=== PATIENT | male | born 1960 | race Caucasian/White ===

== ENCOUNTER 2016-09-24 12:15 | Emergency (ER) | payer OTHER, BC ==
[2016-09-24] MEDS ORDERED: Diphtheria,Pertussis(Acell),Tetanus Vaccine 0.5 ML Syringe IM ONE (12:24)
[2016-09-24] MEDS ORDERED: Sodium Chloride 0.9% 2.5 ML Syringe FLUSH PRN (12:24)
[2016-09-24] MEDS ORDERED: Sodium Chloride 0.9% 10 ML Syringe FLUSH PRN (12:24)
[2016-09-24] MEDS ORDERED: Ondansetron 4 MG/2 ML SDV IVPUSH ONE ×2 (12:39→13:03)
--- NOTE | 2016-09-24 12:40 | EDM.PDOC ---
ED HPI HEAD INJURY - General Chief Complaint: Syncope Stated Complaint: HEAD INJURY Time Seen by Provider: 09/24/16 12:16 Source of Information: Reports: Patient History Limitations: Reports: No limitations - History of Present Illness INITIAL COMMENTS - FREE TEXT/NARRATIVE: History of present illness: [] Patient was using a snowblower and slipped and hit his head on concrete. He had a loss of consciousness and apparently the [employer] product delivery specialist helped him up. He arrived by private vehicle with his complaining of a headache and nauseous. He has had some episodes of emesis since this happened at approximately 11:30 this morning. He has some mild neck pain denies any visual changes, numbness or tingling or any other injuries. Review of systems: As per history of present illness and below otherwise all systems reviewed and negative. Past medical history: As per history of present illness and as reviewed below otherwise noncontributory. Surgical history: As per history of present illness and as reviewed below otherwise noncontributory. Social history: No reported history of drug or alcohol abuse. Family history: As per history of present illness and as reviewed below otherwise noncontributory. Physical exam: General: Well developed, well nourished in NAD HEENT: Atraumatic, normocephalic, pupils reactive, negative for conjunctival pallor or scleral icterus, mucous membranes moist, throat clear, neck supple, nontender, trachea midline. Lungs: Clear to auscultation, breath sounds equal bilaterally, chest nontender. Heart: S1S2, regular, negative for clicks, rubs, or JVD. Abdomen: Soft, nondistended, nontender. Negative for masses or hepatosplenomegaly. Negative for costovertebral tenderness. Pelvis: Stable nontender. Genitourinary: Deferred. Rectal: Deferred. Extremities: Atraumatic, negative for cords or calf pain. Neurovascular unremarkable. Neuro: Awake, alert, oriented. Cranial nerves II through XII unremarkable. Cerebellum unremarkable. Motor and sensory unremarkable throughout. Exam nonfocal. Diagnostics: [] CT head and neck negative fracture or bleed, labs normal EKG normal sinus rhythm without acute ischemia Therapeutics: [] Patient refused any pain meds other than Tylenol he was also given Zofran for nausea Impression: [] Blunt head trauma concussion Plan: [] Followup PMD return to ER if any symptoms worsen Zofran for nausea and Tylenol for pain Definitive disposition and diagnosis as appropriate pending reevaluation and review of above. - Related Data Allergies/ADRs: Allergies Allergy/AdvReac Type Severity Reaction Status Date / Time meperidine HCl [From Demerol] Allergy Delusions Verified 09/24/16 12:24 Home Meds: Home Meds Aspirin [Halfprin] 81 mg PO DAILY 12/21/13 [History] Fish Oil/[place]-3 Fatty Acids [Fish Oil 1,000 MG] 1 each PO DAILY 12/21/13 [ History] Hydrocodone/Acetaminophen [Hydrocodon-Acetaminoph 2.5-325] 0 tab ORAL.INH ASDIRECTED PRN 12/21/13 [History] Meloxicam [Mobic] 1 mg PO DAILY 12/21/13 [History] Social & Family History - Alcohol Use Days Per Week of Alcohol Use: 7 Number of Drinks Per Day: 1 Total Drinks Per Week: 7 - Recreational Drug Use Recreational Drug Use: No Drug Use in Last 12 Months: No ED ROS GENERAL - Review of Systems Review Of Systems: See Below (See history of present illness) ED EXAM, HEAD INJURY - Physical Exam Exam: See Below (See history of present illness) Course - Vital Signs Last Recorded V/S: Last Vital Signs Temp 36.5 C 09/24/16 12:27 Pulse 89 09/24/16 12:27 Resp 18 09/24/16 12:27 BP 186/94 H 09/24/16 12:27 Pulse Ox 96 09/24/16 12:27 - Orders/Labs/Meds Orders: Active Orders 24 hr Category Date Time Status EKG Documentation Completion [RC] STAT Care 09/24/16 12:28 Active Vaccines to be Administered [RC] PER UNIT ROUTINE Care 09/24/16 12:24 Active Acetaminophen [Tylenol] Med 09/24/16 13:23 Once 650 mg PO NOW ONE Sodium Chloride 0.9% [Saline Flush] Med 09/24/16 12:24 Active 10 ml FLUSH ASDIRECTED PRN Sodium Chloride 0.9% [Saline Flush] Med 09/24/16 12:24 Active 2.5 ml FLUSH ASDIRECTED PRN Peripheral IV Insertion Adult [OM.PC] Stat Oth 09/24/16 12:24 Ordered Medication Orders Sodium Chloride (Saline Flush) 10 ml FLUSH ASDIRECTED PRN PRN Reason: Keep Vein Open Sodium Chloride (Saline Flush) 2.5 ml FLUSH ASDIRECTED PRN PRN Reason: Keep Vein Open Labs: Laboratory Tests 09/24/16 09/24/16 09/24/16 Range/Units 12:35 12:35 12:35 WBC 4.11 (4.0-11.0) K/uL RBC 4.83 (4.50-5.90) M/uL Hgb 15.0 (13.0-17.0) g/dL Hct 43.5 (38.0-50.0) % MCV 90.1 (80.0-98.0) fL MCH 31.1 (27.0-32.0) pg MCHC 34.5 (31.0-37.0) g/dL RDW Std Deviation 46.6 (28.0-62.0) fl RDW Coeff of Chante 14 (11.0-15.0) % Plt Count 111 L (150-400) K/uL MPV 10.10 (7.40-12.00) fL Neut % (Auto) 68.3 (48.0-80.0) % Lymph % (Auto) 20.7 (16.0-40.0) % [place] % (Auto) 7.1 (0.0-15.0) % Eos % (Auto) 3.4 (0.0-7.0) % Baso % (Auto) 0.5 (0.0-1.5) % Neut # 2.8 (1.4-5.7) K/uL Lymph # 0.9 (0.6-2.4) K/uL [place] # 0.3 (0.0-0.8) K/uL Eos # 0.1 (0.0-0.7) K/uL Baso # 0.0 (0.0-0.1) K/uL Nucleated RBC % 0.0 /100WBC Nucleated RBCs # 0 K/uL Sodium 140 (136-146) mmol/L Potassium 3.9 (3.5-5.1) mmol/L Chloride 105 (98-110) mmol/L Carbon Dioxide 23 (21-31) mmol/L BUN 18 (6.0-23.0) mg/dL Creatinine 0.8 (0.6-1.5) mg/dL Est Cr Clr Drug Dosing 117.21 mL/min Estimated GFR (MDRD) > 60.0 ml/min Glucose 148 H (60-110) mg/dL Calcium 9.2 (8.8-10.8) mg/dL Total Bilirubin 2.1 H (0.1-1.5) mg/dL AST 37 (5-40) IU/L ALT 42 (8-54) IU/L Alkaline Phosphatase 55 (40-150) Troponin I < 0.10 (0.0-0.29) NG/ML Total Protein 7.0 (6.0-8.0) g/dL Albumin 4.3 (3.5-5.0) g/dL Globulin 2.7 (2.0-3.5) g/dL Albumin/Globulin Ratio 1.6 (1.3-2.8) Meds: Medications Generic Name Dose Route Start Last Admin Trade Name Freq PRN Reason Stop Dose Admin Sodium Chloride 10 ml 09/24/16 12:24 Saline Flush FLUSH ASDIRECTED PRN Keep Vein Open Sodium Chloride 2.5 ml 09/24/16 12:24 Saline Flush FLUSH ASDIRECTED PRN Keep Vein Open Discontinued Medications Generic Name Dose Route Start Last Admin Trade Name Freq PRN Reason Stop Dose Admin Morphine Sulfate 2 mg 09/24/16 13:01 Morphine IVPUSH 09/27/16 13:02 ONETIME PRN Pain Ondansetron HCl 4 mg 09/24/16 12:39 09/24/16 12:56 Zofran IVPUSH 09/24/16 12:40 4 mg ONETIME ONE Administration Ondansetron HCl 4 mg 09/24/16 13:03 Zofran IVPUSH 09/24/16 13:04 ONETIME ONE Departure - Departure Time of Disposition: 13:27 Disposition: Home, Self-Care 01 Condition: good Clinical Impression: Blunt head trauma Qualifiers: Encounter type: initial encounter Qualified Code(s): S09.8XXA - Other specified injuries of head, initial encounter Concussion Qualifiers: Encounter type: initial encounter Loss of consciousness presence/duration: with LOC of unspecified duration Qualified Code(s): S06.0X9A - Concussion with loss of consciousness of unspecified duration, initial encounter Forms: ED Department Discharge Additional Instructions: The following information is given to patients seen in the emergency department who are being discharged to home. This information is to outline your options for follow-up care. We provide all patients seen in our emergency department with a follow-up referral. The need for follow-up, as well as the timing and circumstances, are variable depending upon the specifics of your emergency department visit. If you don't have a primary care physician on staff, we will provide you with a referral. We always advise you to contact your personal physician following an emergency department visit to inform them of the circumstance of the visit and for follow-up with them and/or the need for any referrals to a consulting specialist. The emergency department will also refer you to a specialist when appropriate. This referral assures that you have the opportunity for follow-up care with a specialist. All of these measure are taken in an effort to provide you with optimal care, which includes your follow-up. Under all circumstances we always encourage you to contact your private physician who remains a resource for coordinating your care. When calling for follow-up care, please make the office aware that this follow-up is from your recent emergency room visit. If for any reason you are refused follow-up, please contact the [facility] Emergency Department at and asked to speak to the emergency department charge nurse. Shainafran for nausea Tylenol for pain [facility] [address] [place] [id number] - My Orders Last 24 Hours: My Active Orders 09/24/16 12:24 Vaccines to be Administered [RC] PER UNIT ROUTINE Sodium Chloride 0.9% [Saline Flush] 10 ml FLUSH ASDIRECTED PRN Sodium Chloride 0.9% [Saline Flush] 2.5 ml FLUSH ASDIRECTED PRN Peripheral IV Insertion Adult [OM.PC] Stat 09/24/16 12:28 EKG Documentation Completion [RC] STAT 09/24/16 13:23 Acetaminophen [Tylenol] 650 mg PO NOW ONE - Assessment/Plan Last 24 Hours: My Active Orders 09/24/16 12:24 Vaccines to be Administered [RC] PER UNIT ROUTINE Sodium Chloride 0.9% [Saline Flush] 10 ml FLUSH ASDIRECTED PRN Sodium Chloride 0.9% [Saline Flush] 2.5 ml FLUSH ASDIRECTED PRN Peripheral IV Insertion Adult [OM.PC] Stat 09/24/16 12:28 EKG Documentation Completion [RC] STAT 09/24/16 13:23 Acetaminophen [Tylenol] 650 mg PO NOW ONE
[2016-09-24] MEDS ORDERED: Morphine 2 MG/ML Syringe IVPUSH PRN (13:01)
[2016-09-24 13:07] LABS: CHLORIDE,CL 105 mmol/L (98-110); SODIUM,NA 140 mmol/L (136-146)
--- NOTE | 2016-09-24 13:15 | CT ---
EXAMINATION: Non contrast CT head. Coronal and sagittal reformats. HISTORY: Pain FINDINGS: No evidence of intra or extra axial hemorrhage, mass, midline shift, hydrocephalus or edema. No hypoattenuation changes in the major vascular territories to suggest acute infarct. No abnormal intracranial calcifications are detected. No evidence of substantial vascular calcifica tions. Paranasal sinuses and mastoid air cells are well aerated without substantial findings. The orbits a nd globes appear intact. Pituitary fossa appears unremarkable. Calvarium is intact. No evidence of skull fracture. IMPRESSION: No acute intracranial findings.
--- NOTE | 2016-09-24 13:19 | CT ---
EXAMINATION: CT cervical spine HISTORY: Pain COMPARISON: None TECHNIQUE: Axial CT images obtained through the cervical spine without contrast. Coronal and sagitta l reconstructions obtained. FINDINGS: The cervical spinal alignment appears normal. The vertebral body heights and disc spaces a ppear well-maintained. There is no fracture or dislocation. Mild marginal osteophytes are noted. Bon e mineralization appears normal. The paravertebral soft tissues appear normal. The right thyroid lob e is heterogeneous containing coarse calcifications. IMPRESSION: 1. No acute cervical spinal abnormality. 2. Mild degenerative changes noted within the cervical spine. 3. Enlarged heterogeneous thyroid lobe, correlation with ultrasound may be beneficial.
[2016-09-24] MEDS ORDERED: Acetaminophen 325 MG Tab PO ONE (13:23)
[2016-09-24 13:25] VITALS: BP 155/106
== END 2016-09-24 13:40 | disposition home or self-care (01) ==
LOC: MW.ED 12:15
DX: S06.0X9A Concussion with loss of consciousness of unspecified duration, initial encounter (principal); S09.8XXA Other specified injuries of head, initial encounter; Z88.6 Allergy status to analgesic agent; Z79.899 Other long term (current) drug therapy; Z79.82 Long term (current) use of aspirin; V00.321A Fall from snow-skis, initial encounter
CPT/HCPCS: 70450; 72125; 80053; 84484; 85025; 93005; 96374; 99284; A9270; J2405

== ENCOUNTER 2018-10-30 07:40 | Day surgery (SDC) | payer OTHER, BC ==
[~2018-10-30 07:40] MED LIST: Lactated Ringers 1,000 ML IV SCH
--- NOTE | 2018-10-30 09:31 | PCM.PREANE ---
Preanesthetic Assessment - Anesthesia/Transfusion/Family Hx Anesthesia History: Prior Anesthesia Reaction Other Type of Anesthesia Reaction Comment: Reports has motion sickness, and prior severe nausea post General Anesthesi Family History of Anesthesia Reaction: No Transfusion History: No Prior Transfusion(s) - Review of Systems General: No Symptoms Pulmonary: No Symptoms Cardiovascular: No Symptoms Gastrointestinal: No Symptoms Neurological: No Symptoms Other: Reports: None - Physical Assessment NPO Status Date: 10/29/18 NPO Status Time: 22:00 O2 Sat by Pulse Oximetry: 100 Respiratory Rate: 18 Vital Signs: Last Vital Signs Temp 97.0 F 10/30/18 07:55 Pulse 89 10/30/18 07:55 Resp 18 10/30/18 07:55 BP 143/69 H 10/30/18 07:55 Pulse Ox 100 10/30/18 07:55 Height: 6 ft Weight: 99.79 kg ASA Class: 2 Mental Status: Alert & Oriented x3 Airway Class: Mallampati = 2 Dentition: Reports: Normal Dentition ROM/Head Extension: Full Lungs: Clear to Auscultation, Normal Respiratory Effort Cardiovascular: Regular Rate, Regular Rhythm - Allergies Allergies/Adverse Reactions: Allergies Allergy/AdvReac Type Severity Reaction Status Date / Time meperidine HCl [From Demerol] Allergy Delusions Verified 10/28/18 10:31 morphine Allergy Nausea and Verified 10/28/18 10:31 Vomiting - Blood Blood Available: No - Anesthesia Plan Pre-Op Medication Ordered: None - Acknowledgements Anesthesia Type Planned: General Anesthesia, MAC Pt an Appropriate Candidate for the Planned Anesthesia: Yes Alternatives and Risks of Anesthesia Discussed w Pt/Guardian: Yes Pt/Guardian Understands and Agrees with Anesthesia Plan: Yes Additional Comments: PMH: dm2, no longer has annika or htn PLAN: mac/tiva PreAnesthesia Questionnaire HEENT History: Reports: Other (See Below) Other HEENT History: uses reading glasses Cardiovascular History: Reports: Hypertension, Other (See Below) Other Cardiovascular History: previously hypertensive- has been off meds- controlled by diet and exercise, has varicose veins in legs Respiratory History: Reports: Sleep Apnea Other Respiratory History: does not need CPAP since weight loss Gastrointestinal History: Reports: Colon Polyp, Hemorrhoids Genitourinary History: Reports: None Musculoskeletal History: Reports: Arthritis, Fracture Other Musculoskeletal History: hx of fx radius and tibia Neurological History: Reports: Concussion, Other (See Below) Other Neuro History: hx of motion sickness Endocrine/Metabolic History: Reports: Diabetes, Type II Hematologic History: Reports: Anemia Dermatologic History: Reports: Eczema - Infectious Disease History Infectious Disease History: Reports: Chicken Pox - Past Surgical History Head Surgeries/Procedures: Reports: None GI Surgical History: Reports: Colonoscopy, Hernia, Inguinal Male Surgical History: Reports: Vasectomy Other Male Surgeries/Procedures: herniorhaphy Musculoskeletal Surgical History: Reports: Knee Replacement Other Musculoskeletal Surgeries/Procedures:: right TKA - SUBSTANCE USE Smoking Status *Q: Former Smoker Tobacco Use Within Last Twelve Months: No Days Per Week of Alcohol Use: 7 Number of Drinks Per Day: 2 Total Drinks Per Week: 14 Recreational Drug Use History: No - HOME MEDS Home Medications: Home Meds Fish Oil/[place]-3 Fatty Acids [Fish Oil 1,000 MG] 1 gm PO DAILY 12/21/13 [History ] Glucosam/Chond/Hyalu/Cf Borate [Move Free Joint Health Tablet] 2 tab PO DAILY [History] Hydrocodone/Acetaminophen [Hydrocodon-Acetaminophn 10-325] 1 tab PO Q6H PRN 05/08 [History] Triamcinolone Acetonide [Triamcinolone Acetonide 0.1% Crm] 1 dose TOP ASDIRECTED PRN 10/28/18 [History] metFORMIN HCl [Glucophage] 850 mg PO BIDMEALS 10/28/18 [History] - CURRENT (IN HOUSE) MEDS Current Meds: Current Medications Lactated Ringer's (Ringers, Lactated) 1,000 mls @ 125 mls/hr IV ASDIRECTED ROBERT Last Admin: 10/30/18 08:10 Dose: 125 mls/hr
[2018-10-30] MEDS ORDERED: Propofol 200 MG/20 ML SDV ONE ×2 (09:49→10:22)
[2018-10-30] MEDS ORDERED: Ondansetron 4 MG/2 ML SDV ONE (09:49)
--- NOTE | 2018-10-30 10:39 | PCM.POSTAN ---
POST ANESTHESIA ASSESSMENT - PAIN Pain Score: 0
--- NOTE | 2018-10-30 10:45 | PCM.OPNOTE ---
- General Post-Op/Procedure Note Date of Surgery/Procedure: 10/30/18 Operative Procedure(s): egd w bx. colonoscopy w bx Condition: Good
--- NOTE | 2018-10-30 10:51 | PCM.OPNOTE ---
- General Post-Op/Procedure Note Date of Surgery/Procedure: 10/30/18 Operative Procedure(s): egd w bx. colonoscopy w bx Findings: see dict [id number] Pre Op Diagnosis: wt loss and hx of polyp Post-Op Diagnosis: Same Anesthesia Technique: Moderate Sedation Primary Surgeon: Macario Akbar Pathology: egd bx and sessile polyp at 85 cm when scope pulling out Complications: None Condition: Good Free Text/Narrative:: Intake & Output 10/29/18 10/30/18 10/30/18 22:59 06:59 14:59 Intake Total 1100 Balance 1100
--- NOTE | 2018-10-30 10:57 | PCM48HPAN ---
Post Anesthesia Note - EVALUATION WITHIN 48HRS OF ANESTHETIC Vital Signs in Normal Range: Yes Patient Participated in Evaluation: Yes Respiratory Function Stable: Yes Airway Patent: Yes Cardiovascular Function Stable: Yes Hydration Status Stable: Yes Pain Control Satisfactory: Yes Nausea and Vomiting Control Satisfactory: Yes Mental Status Recovered: Yes Resp Rate: 7
[2018-10-30 10:58] VITALS: BP 118/74
[2018-10-30] MEDS ORDERED: Arista AH Absorbable Hemostat ONE (11:49)
--- NOTE | 2018-10-30 16:51 | OR ---
SURGEON: Macario Akbar MD DATE OF PROCEDURE: 10/30/2018 PREOPERATIVE DIAGNOSES: 1. History of colon polyp. 2. Weight loss. POSTOPERATIVE DIAGNOSES: 1. Esophagogastroduodenoscopy diagnosis is gastroesophageal reflux disease. 2. Colonoscopy diagnosis is polyp and diverticulosis. PROCEDURE PERFORMED: 1. Esophagogastroduodenoscopy with biopsy. 2. Colonoscopy with biopsy. DESCRIPTION OF PROCEDURE: EGD: The patient was taken to the endoscopy room, and with the CLINICAL PHARMACY COORDINATOR, Diprivan was administered. A well-lubricated EGD scope was gently inserted through the oropharynx, down the esophagus, passing through the gastroesophageal junction, into the stomach. The mucosa was examined upon the passage. Any etiology will be noted. Once in the stomach, we continued to advance to the distal antrum, passed through the pylorus into the second portion of the duodenum. Again, the mucosa was examined for any abnormality and etiology. The scope was then retrieved back to the stomach and then retroflexed to look at the fundus of the stomach. If a biopsy was indicated, we will biopsy the antrum, body, and gastroesophageal junction. The air will be sucked out while the scope is retrieved to reduce the patient's discomfort. The patient tolerated the procedure well. There were no intraoperative complications. Dr. Akbar was present through the whole procedure. Prior to surgery, a time-out had been called, the patient identified, procedure identified and antibiotic administered. Colonoscopy: The patient was taken to the endoscopy room. A time out was called, patient identified, and procedure identified. Diprivan was then administrated. Patient went from awake to sleep, hearing doctor talking or door closing is normal. Perineum inspection and digital examination were then performed. A well-lubricated colonoscope was gently inserted through the rectum, advanced past the rectosigmoid junction, the descending colon, splenic flexure, transverse colon, hepatic flexure, ascending colon, arrived to the cecum. Cecum was identified as dictated in the finding. Then the scope was carefully withdrawn while attention was paid to the mucosal surface for any abnormality. Air will be sucked out during the scope withdrawal. At the rectum, retroflexed to examine any rectal diseases, fistula or hemorrhoids. During mucosal examination, biopsy performed. Patient tolerated procedure well. There were no intraoperative complications, and Dr. Akbar was present throughout the whole procedure. FINDINGS: EGD findings: 1. The patient is easily sedated with CLINICAL PHARMACY COORDINATOR and Diprivan. The patient is soundly snoring. 2. Oropharynx and proximal esophagus are free of disease. No stricture of varicosity and distal esophagus at GE junction at 40 shows moderate amount of salmon-colored change suggests of acid reflux. Stomach rugae is normal in appearance. Antrum is normal in appearance and duodenum was grossly normal. There is no food particle or blood or bile observed and scope retrieved back to the stomach. Retroflexed look at the fundus of stomach, there was no hiatal hernia. Biopsy done at antrum, body, and GE junction at 40, and sucked out the gas while scope pulling out. Colonoscopy findings: 1. The patient is easily sedated with CLINICAL PHARMACY COORDINATOR and Diprivan. The patient is soundly snoring. 2. Bowel prep is average with some liquid stool. No semi-formed stool. 3. Colon is rather straightforward. Cecum indicated by ileocecal fold, one-to- one indentation, and light emittance. Appendiceal orifice is not observed. Mucosa examined upon scope pulling out. The patient has mild diverticulosis on the left colon. No signs or symptoms of diverticulitis. The patient has 1 small polyp at distance 85 cm when scope pulling out and sessile polyp removed with cold biopsy forceps. The patient has external hemorrhoid and internal hemorrhoid. The patient would benefit from repeat colonoscopy in 3 years from today because of history of polyp if clinically indicated otherwise. FREDDIE / RANDI /[id number] ISSA
== END 2018-10-30 11:14 | disposition home or self-care (01) ==
LOC: MW.SDS 07:40
PROVIDERS: ATTEND Surgery
DX: Z12.11 Encounter for screening for malignant neoplasm of colon (principal); D12.3 Benign neoplasm of transverse colon; K57.30 Diverticulosis of large intestine without perforation or abscess without bleeding; K64.8 Other hemorrhoids; K64.4 Residual hemorrhoidal skin tags; K29.50 Unspecified chronic gastritis without bleeding; K21.0 Gastro-esophageal reflux disease with esophagitis; I83.90 Asymptomatic varicose veins of unspecified lower extremity; I10 Essential (primary) hypertension; E11.9 Type 2 diabetes mellitus without complications; G47.30 Sleep apnea, unspecified; R63.4 Abnormal weight loss; Z68.29 Body mass index [BMI] 29.0-29.9, adult; Z88.5 Allergy status to narcotic agent; Z87.891 Personal history of nicotine dependence; Z86.010 Personal history of colon polyps; Z79.82 Long term (current) use of aspirin; Z79.84 Long term (current) use of oral hypoglycemic drugs; Z79.899 Other long term (current) drug therapy
CPT/HCPCS: 43239; 45380; 82962; J2001; J2405; J2704; J7120; 88305; 88312

== ENCOUNTER 2020-03-07 08:26 | Emergency (ER) | payer BC, OTHER ==
[2020-03-07] MEDS ORDERED: fentaNYL 50 MCG/ML SDV IVPUSH ONE ×2 (08:40→09:42)
[2020-03-07] MEDS ORDERED: Sodium Chloride 0.9% 10 ML Syringe FLUSH PRN (08:40)
[2020-03-07] MEDS ORDERED: Acetaminophen 500 MG Tab PO ONE (08:40)
[2020-03-07] MEDS ORDERED: Sodium Chloride 0.9% 2.5 ML Syringe FLUSH PRN (08:40)
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
[2020-03-07] MEDS ORDERED: Diphtheria,Pertussis(Acell),Tetanus Vaccine 0.5 ML Syringe IM ONE (08:43)
[2020-03-07 09:27] LABS: BLOOD UREA NITROGEN,BUN 18 mg/dL (7.0-18.0); CARBON DIOXIDE,CO2 21.9 mmol/L (21.0-32.0); CHLORIDE,CL 103 mmol/L (98-107); GLUCOSE RANDOM 202 mg/dL (74-106); POTASSIUM,K 4.1 mmol/L (3.5-5.1); SODIUM,NA 136 mmol/L (136-148)
[2020-03-07] MEDS ORDERED: Ondansetron 4 MG/2 ML SDV IVPUSH ONE ×2 (09:52→11:58)
--- NOTE | 2020-03-07 09:52 | CR ---
Right femur: AP and lateral views of the right femur were obtained. Comminuted and displaced fracture is noted within the distal femur directly above a knee prosthesis. Displacement by almost a shaft width is seen. No proximal abnormality is seen within the right femur. Soft tissue swelling is present. Impression: 1. Comminuted and displaced fracture as described above. 2. Right knee prosthesis. Diagnostic code #5 This report was dictated in MDT
--- NOTE | 2020-03-07 09:53 | CR ---
Right knee: AP and lateral views of the right knee were obtained. Comparison: No prior knee study. Fracture is seen within the distal right femur above a knee prosthesis. Comminution is noted as well as displacement by almost a shaft width. Prosthesis appears normal in alignment. Osteopenia is noted. No additional abnormality is appreciated. Impression: 1. Knee prosthesis. 2. Comminuted and displaced femur fracture as noted above. Diagnostic code #5 This report was dictated in MDT
--- NOTE | 2020-03-07 09:54 | CR ---
Pelvis: AP view of the pelvis was obtained. Comparison: No prior pelvis study. Joint space within the left hip is minimally narrowed. Joint space within the right hip is preserved. Sacroiliac joints appear within normal limits. No acute fracture or other abnormality is appreciated. Impression: 1. Minimal joint space narrowing with left hip. 2. AP pelvis study shows nothing acute. Diagnostic code #2 This report was dictated in MDT
--- NOTE | 2020-03-07 10:19 | CR ---
Chest: Portable view of the chest was obtained. Comparison: No previous chest imaging. Heart size and mediastinum are normal. Lungs are clear with no acute parenchymal change. Bony structures are grossly intact. Impression: 1. Nothing acute is seen on portable chest x-ray. Diagnostic code #1 This report was dictated in MDT
[2020-03-07] MEDS ORDERED: HYDROmorphone 2 MG/ML Syringe IVPUSH ONE (10:40)
[2020-03-07 10:59] VITALS: PULSE 120
[2020-03-07] MEDS ORDERED: Lactated Ringers 1,000 ML IV ONE (11:04)
[2020-03-07] MEDS ORDERED: HYDROmorphone 1 MG/ML Syringe IVPUSH ONE (11:57)
[2020-03-07 12:05] VITALS: BP 121/76
== END 2020-03-07 12:15 ==
LOC: MW.ED 08:26
DX: S72.401A Unspecified fracture of lower end of right femur, initial encounter for closed fracture (principal); S60.512A Abrasion of left hand, initial encounter; S60.511A Abrasion of right hand, initial encounter; S40.211A Abrasion of right shoulder, initial encounter; S00.81XA Abrasion of other part of head, initial encounter; I10 Essential (primary) hypertension; E11.9 Type 2 diabetes mellitus without complications; Z79.84 Long term (current) use of oral hypoglycemic drugs; Z88.5 Allergy status to narcotic agent; Z23 Encounter for immunization; V19.9XXA Pedal cyclist (driver) (passenger) injured in unspecified traffic accident, initial encounter
CPT/HCPCS: 29505; 36415; 71045; 72170; 73552; 73560; 80053; 83690; 85025; 90471; 90715; 96361; 96374; 96375; 96376; 99285; A9270; J1170; J2405; J3010; J7120; 99284

== ENCOUNTER 2022-07-08 10:29 | Day surgery (SDC) | payer OTHER, BC ==
[~2022-07-08 10:29] MED LIST changes: +cefOXitin 2 GM in Premix Bag 1 BAG IV ONE
[2022-07-08] MEDS ORDERED: Propofol 200 MG/20 ML SDV ONE (12:39)
[2022-07-08] MEDS ORDERED: Lidocaine 2% 5 ML SDV ONE (12:39)
[2022-07-08] MEDS ORDERED: Ondansetron 4 MG/2 ML SDV ONE (12:39)
[2022-07-08] MEDS ORDERED: Lactated Ringers 1,000 ML IV SCH (13:15)
[2022-07-08 14:54] VITALS: BP 148/79; PULSE 98
== END 2022-07-08 13:47 | disposition home or self-care (01) ==
LOC: MW.SDS 10:29
PROVIDERS: ATTEND Surgery
DX: K62.5 Hemorrhage of anus and rectum (principal); M19.90 Unspecified osteoarthritis, unspecified site; E11.9 Type 2 diabetes mellitus without complications; E66.9 Obesity, unspecified; I10 Essential (primary) hypertension; Z86.010 Personal history of colon polyps; Z79.899 Other long term (current) drug therapy; Z88.6 Allergy status to analgesic agent; Z79.84 Long term (current) use of oral hypoglycemic drugs; Z88.5 Allergy status to narcotic agent; Z98.890 Other specified postprocedural states; Z87.891 Personal history of nicotine dependence; Z96.651 Presence of right artificial knee joint
CPT/HCPCS: 45378; 82947; J2405; J2704; J7120

== ENCOUNTER 2025-02-08 08:35 | Inpatient (IN) | payer OTHER, BC ==
[2025-02-08] MEDS ORDERED: Sodium Chloride 0.9% 10 ML Syringe FLUSH PRN (08:55)
[2025-02-08] MEDS ORDERED: Sodium Chloride 0.9% 2.5 ML Syringe FLUSH PRN (08:55)
[2025-02-08] MEDS: Ondansetron 4 MG/2 ML SDV IVPUSH ONE ×2 (09:28→15:11)
[2025-02-08 09:43] LABS: BASOPHILS ABSOLUTE AUTO 0.04 K/uL (0.00-0.20); BASOPHILS PERCENT AUTO 0.3 % (0.0-1.0); EOSINOPHILS ABSOLUTE AUTO 0.01 K/uL (0.00-0.45); EOSINOPHILS PERCENT AUTO 0.1 % (0.0-6.0); IMMATURE GRAN ABSOLUTE AUTO 0.10 K/uL (0.00-0.05); IMMATURE GRAN PERCENT AUTO 0.6 % (0.0-0.4); LYMPHOCYTES ABSOLUTE AUTO 0.91 K/uL (1.00-4.80); LYMPHOCYTES PERCENT AUTO 5.9 % (24.0-44.0); MEAN PLATELET VOLUME 10.4 fL (9.4-12.4); MONOCYTES ABSOLUTE AUTO 1.25 K/uL (0.00-0.80); MONOCYTES PERCENT AUTO 8.1 % (0.0-8.0); NEUTROPHILS ABSOLUTE AUTO 13.13 K/uL (1.80-7.70); NEUTROPHILS PERCENT AUTO 85.0 % (41.0-71.0); NRBC ABSOLUTE 0.00 K/uL (0.00-0.02); NRBC PERCENT 0.0 /100WBC (0.0-0.2); PLATELET COUNT,PLT 155 K/uL (150-400); RED BLOOD CELL COUNT 4.97 M/uL (4.52-5.90); WHITE BLOOD CELL COUNT,WBC 15.44 K/uL (3.9-11.3)
[2025-02-08 09:44] LABS: APPEARANCE,URINE CLEAR; GLUCOSE,URINE 500 mg/dL (NEGATIVE); OCCULT BLOOD,URINE SMALL (NEGATIVE)
[2025-02-08 09:54] LABS: EPITHELIAL CELLS,URINE RARE (NONE-FEW)
[2025-02-08 10:25] LABS: A/G RATIO 1.1 (0.9-1.6); ALANINE AMINOTRANSFERASE,ALT 29.0 IU/L (14-63); ASPARTATE AMNIOTRANSFERASE,AST 59.0 IU/L (15-37); BILIRUBIN TOTAL 7.5 mg/dL (0.2-1.0); BLOOD UREA NITROGEN,BUN 26.0 mg/dL (7.0-18.0); CARBON DIOXIDE,CO2 11.4 mmol/L (21.0-32.0); CHLORIDE,CL 93.0 mmol/L (98-107); CREATININE 0.8 mg/dL (0.8-1.3); EST CRCL DRUG DOSING (CG) 105.08 mL/min; GLUCOSE RANDOM 212.0 mg/dL (74-106); POTASSIUM,K 6.2 mmol/L (3.5-5.1); PROTEIN TOTAL,TP 7.8 g/dL (6.4-8.2)
[2025-02-08 10:35] LABS: ESTIMATED GFR 100.0 mL/min (>60); SODIUM,NA 127.0 mmol/L (136-148)
[2025-02-08] MEDS: Iopamidol 755 MG/ML 500 ML Multipack Bottle IVPUSH STA (11:54)
[2025-02-08] MEDS: fentaNYL 100 MCG/2 ML SDV IVPUSH ONE (15:12)
[2025-02-08 15:31] LABS: BASOPHILS ABSOLUTE AUTO 0.01 K/uL (0.00-0.20); BASOPHILS PERCENT AUTO 0.1 % (0.0-1.0); EOSINOPHILS ABSOLUTE AUTO 0.01 K/uL (0.00-0.45); EOSINOPHILS PERCENT AUTO 0.1 % (0.0-6.0); IMMATURE GRAN ABSOLUTE AUTO 0.07 K/uL (0.00-0.05); IMMATURE GRAN PERCENT AUTO 0.7 % (0.0-0.4); LYMPHOCYTES ABSOLUTE AUTO 0.83 K/uL (1.00-4.80); LYMPHOCYTES PERCENT AUTO 8.3 % (24.0-44.0); MEAN PLATELET VOLUME 9.1 fL (9.4-12.4); MONOCYTES ABSOLUTE AUTO 0.82 K/uL (0.00-0.80); MONOCYTES PERCENT AUTO 8.2 % (0.0-8.0); NEUTROPHILS ABSOLUTE AUTO 8.28 K/uL (1.80-7.70); NEUTROPHILS PERCENT AUTO 82.6 % (41.0-71.0); NRBC ABSOLUTE 0.00 K/uL (0.00-0.02); NRBC PERCENT 0.0 /100WBC (0.0-0.2); PLATELET COUNT,PLT 137 K/uL (150-400); RED BLOOD CELL COUNT 4.59 M/uL (4.52-5.90); WHITE BLOOD CELL COUNT,WBC 10.02 K/uL (3.9-11.3)
[2025-02-08 16:00] LABS: A/G RATIO 1.0 (0.9-1.6); ALANINE AMINOTRANSFERASE,ALT 23.0 IU/L (14-63); ASPARTATE AMNIOTRANSFERASE,AST 15.0 IU/L (15-37); BILIRUBIN TOTAL 6.2 mg/dL (0.2-1.0); BLOOD UREA NITROGEN,BUN 28.0 mg/dL (7.0-18.0); CARBON DIOXIDE,CO2 14.3 mmol/L (21.0-32.0); CHLORIDE,CL 97.0 mmol/L (98-107); CREATININE 1.0 mg/dL (0.8-1.3); EST CRCL DRUG DOSING (CG) 84.07 mL/min; ESTIMATED GFR 85.0 mL/min (>60); GLUCOSE RANDOM 166.0 mg/dL (74-106); POTASSIUM,K 4.6 mmol/L (3.5-5.1); PROTEIN TOTAL,TP 7.1 g/dL (6.4-8.2); SODIUM,NA 131.0 mmol/L (136-148)
[2025-02-08 16:41] LABS: BILIRUBIN DIRECT 1.8 mg/dL (0.0-0.5); BILIRUBIN INDIRECT 4.5; BILIRUBIN TOTAL 6.3 mg/dL (0.2-1.0)
[2025-02-08] MEDS ORDERED: 50% Dextrose in Water 50 ML Syringe IVPUSH PRN (20:44)
[2025-02-08] MEDS: Ondansetron 4 MG/2 ML SDV IVPUSH PRN (21:52)
[2025-02-08] MEDS: fentaNYL 50 MCG/ML SDV IVPUSH PRN (21:54)
[2025-02-08 23:07] LABS: BLOOD UREA NITROGEN,BUN 30.0 mg/dL (7.0-18.0); CARBON DIOXIDE,CO2 16.8 mmol/L (21.0-32.0); CHLORIDE,CL 97.0 mmol/L (98-107); CREATININE 0.8 mg/dL (0.8-1.3); EST CRCL DRUG DOSING (CG) 105.08 mL/min; GLUCOSE RANDOM 174.0 mg/dL (74-106); POTASSIUM,K 4.5 mmol/L (3.5-5.1); SODIUM,NA 132.0 mmol/L (136-148)
[2025-02-08 23:08] LABS: ESTIMATED GFR 100.0 mL/min (>60)
[2025-02-09] MEDS ORDERED: Sodium Chloride 0.9% 10 ML Syringe FLUSH PRN (00:54)
[2025-02-09] MEDS ORDERED: Sodium Chloride 0.9% 2.5 ML Syringe FLUSH PRN (00:54)
[2025-02-09 05:58] LABS: BASOPHILS ABSOLUTE AUTO 0.02 K/uL (0.00-0.20); BASOPHILS PERCENT AUTO 0.2 % (0.0-1.0); EOSINOPHILS ABSOLUTE AUTO 0.06 K/uL (0.00-0.45); EOSINOPHILS PERCENT AUTO 0.6 % (0.0-6.0); IMMATURE GRAN ABSOLUTE AUTO 0.09 K/uL (0.00-0.05); IMMATURE GRAN PERCENT AUTO 1.0 % (0.0-0.4); LYMPHOCYTES ABSOLUTE AUTO 1.08 K/uL (1.00-4.80); LYMPHOCYTES PERCENT AUTO 11.6 % (24.0-44.0); MEAN PLATELET VOLUME 9.2 fL (9.4-12.4); MONOCYTES ABSOLUTE AUTO 0.84 K/uL (0.00-0.80); MONOCYTES PERCENT AUTO 9.0 % (0.0-8.0); NEUTROPHILS ABSOLUTE AUTO 7.26 K/uL (1.80-7.70); NEUTROPHILS PERCENT AUTO 77.6 % (41.0-71.0); NRBC ABSOLUTE 0.00 K/uL (0.00-0.02); NRBC PERCENT 0.0 /100WBC (0.0-0.2); PLATELET COUNT,PLT 141 K/uL (150-400); RED BLOOD CELL COUNT 4.34 M/uL (4.52-5.90); WHITE BLOOD CELL COUNT,WBC 9.35 K/uL (3.9-11.3)
[2025-02-09 06:23] LABS: A/G RATIO 1.0 (0.9-1.6); ALANINE AMINOTRANSFERASE,ALT 22.0 IU/L (14-63); ASPARTATE AMNIOTRANSFERASE,AST 11.0 IU/L (15-37); BILIRUBIN TOTAL 3.1 mg/dL (0.2-1.0); BLOOD UREA NITROGEN,BUN 27.0 mg/dL (7.0-18.0); CARBON DIOXIDE,CO2 17.1 mmol/L (21.0-32.0); CHLORIDE,CL 99.0 mmol/L (98-107); CREATININE 0.7 mg/dL (0.8-1.3); EST CRCL DRUG DOSING (CG) 120.1 mL/min; GLUCOSE RANDOM 156.0 mg/dL (74-106); POTASSIUM,K 4.5 mmol/L (3.5-5.1); PROTEIN TOTAL,TP 6.8 g/dL (6.4-8.2); SODIUM,NA 133.0 mmol/L (136-148)
[2025-02-09 06:24] LABS: ESTIMATED GFR 104.0 mL/min (>60)
[2025-02-09 12:24] LABS: BLOOD UREA NITROGEN,BUN 24.0 mg/dL (7.0-18.0); CARBON DIOXIDE,CO2 17.0 mmol/L (21.0-32.0); CHLORIDE,CL 98.0 mmol/L (98-107); CREATININE 0.8 mg/dL (0.8-1.3); EST CRCL DRUG DOSING (CG) 105.08 mL/min; GLUCOSE RANDOM 208.0 mg/dL (74-106); POTASSIUM,K 4.0 mmol/L (3.5-5.1); SODIUM,NA 129.0 mmol/L (136-148)
[2025-02-09 12:29] LABS: ESTIMATED GFR 100.0 mL/min (>60)
[2025-02-09 19:30] LABS: BLOOD UREA NITROGEN,BUN 18.0 mg/dL (7.0-18.0); CARBON DIOXIDE,CO2 22.9 mmol/L (21.0-32.0); CHLORIDE,CL 97.0 mmol/L (98-107); CREATININE 0.5 mg/dL (0.8-1.3); EST CRCL DRUG DOSING (CG) 168.13 mL/min; GLUCOSE RANDOM 198.0 mg/dL (74-106); POTASSIUM,K 3.9 mmol/L (3.5-5.1); SODIUM,NA 130.0 mmol/L (136-148)
[2025-02-09 19:33] LABS: ESTIMATED GFR 115.0 mL/min (>60)
[2025-02-10 05:35] LABS: BASOPHILS ABSOLUTE AUTO 0.01 K/uL (0.00-0.20); BASOPHILS PERCENT AUTO 0.3 % (0.0-1.0); EOSINOPHILS ABSOLUTE AUTO 0.04 K/uL (0.00-0.45); EOSINOPHILS PERCENT AUTO 1.2 % (0.0-6.0); IMMATURE GRAN ABSOLUTE AUTO 0.02 K/uL (0.00-0.05); IMMATURE GRAN PERCENT AUTO 0.6 % (0.0-0.4); LYMPHOCYTES ABSOLUTE AUTO 0.47 K/uL (1.00-4.80); LYMPHOCYTES PERCENT AUTO 13.9 % (24.0-44.0); MEAN PLATELET VOLUME 9.2 fL (9.4-12.4); MONOCYTES ABSOLUTE AUTO 0.32 K/uL (0.00-0.80); MONOCYTES PERCENT AUTO 9.5 % (0.0-8.0); NEUTROPHILS ABSOLUTE AUTO 2.52 K/uL (1.80-7.70); NEUTROPHILS PERCENT AUTO 74.5 % (41.0-71.0); NRBC ABSOLUTE 0.00 K/uL (0.00-0.02); NRBC PERCENT 0.0 /100WBC (0.0-0.2); PLATELET COUNT,PLT 109 K/uL (150-400); RED BLOOD CELL COUNT 3.28 M/uL (4.52-5.90); WHITE BLOOD CELL COUNT,WBC 3.38 K/uL (3.9-11.3)
[2025-02-10] MEDS ORDERED: 50% Dextrose in Water 50 ML Syringe IVPUSH PRN (05:51)
[2025-02-10 05:57] LABS: A/G RATIO 0.9 (0.9-1.6); ALANINE AMINOTRANSFERASE,ALT 20.0 IU/L (14-63); ASPARTATE AMNIOTRANSFERASE,AST 12.0 IU/L (15-37); BILIRUBIN TOTAL 1.8 mg/dL (0.2-1.0); BLOOD UREA NITROGEN,BUN 16.0 mg/dL (7.0-18.0); CARBON DIOXIDE,CO2 21.3 mmol/L (21.0-32.0); CHLORIDE,CL 101.0 mmol/L (98-107); CREATININE 0.8 mg/dL (0.8-1.3); EST CRCL DRUG DOSING (CG) 105.08 mL/min; ESTIMATED GFR 100.0 mL/min (>60); GLUCOSE RANDOM 248.0 mg/dL (74-106); POTASSIUM,K 3.0 mmol/L (3.5-5.1); PROTEIN TOTAL,TP 5.4 g/dL (6.4-8.2); SODIUM,NA 133.0 mmol/L (136-148)
[2025-02-10] MEDS: Scopalamine 1mg/3day Transdermal Patch TOP ONE (06:12)
[2025-02-10] MEDS ORDERED: Naloxone 0.4 MG/ML SDV IVPUSH PRN (07:51)
[2025-02-10] MEDS ORDERED: Ondansetron 4 MG/2 ML SDV IVPUSH PRN (07:51)
[2025-02-10] MEDS ORDERED: fentaNYL 50 MCG/ML SDV IVPUSH PRN (07:51)
[2025-02-10] MEDS ORDERED: Albuterol 0.083% 2.5 MG/3 ML Neb Soln NEB PRN (07:51)
[2025-02-10] MEDS: Magnesium Sulfate 2 GM/50 mL 2 GM in Premix Bag 1 BAG IV ONE (08:54)
[2025-02-10] MEDS ORDERED: Morphine 10 MG/ML SDV ONE (09:05)
[2025-02-10] MEDS ORDERED: Ropivacaine 0.5% 5 MG/ML 30 ML SDV ONE (09:05)
[2025-02-10] MEDS ORDERED: Lidocaine 2% 11 ML Jelly Filled Syringe ONE (10:29)
[2025-02-10] MEDS ORDERED: propofoL 500 MG/50 ML 50 ML ONE ×2 (10:31→12:30)
[2025-02-10] MEDS ORDERED: Propofol 200 MG/20 ML SDV ONE (10:32)
[2025-02-10] MEDS ORDERED: fentaNYL 250 MCG/5 ML SDV ONE ×2 (10:34→12:34)
[2025-02-10] MEDS ORDERED: Calcium Chloride 10% 1 GM/10 ML Syringe ONE (12:11)
[2025-02-10] MEDS ORDERED: Ketamine HCL/NACL, ISO-OSM 50 MG/5 ML Syringe ONE (12:17)
[2025-02-10] MEDS ORDERED: Dexamethasone 4 MG/ML 5 ML MDV ONE (12:51)
[2025-02-10] MEDS ORDERED: Ondansetron 4 MG/2 ML SDV ONE (12:51)
[2025-02-10] MEDS: diphenhydrAMINE 50 MG/ML SDV IVPUSH PRN (13:58)
[2025-02-10] MEDS: Amoxicillin/Clavulanate K 875-125 MG Tab PO SCH (15:28)
[2025-02-11 05:58] LABS: BASOPHILS ABSOLUTE AUTO 0.01 K/uL (0.00-0.20); BASOPHILS PERCENT AUTO 0.3 % (0.0-1.0); EOSINOPHILS ABSOLUTE AUTO 0.01 K/uL (0.00-0.45); EOSINOPHILS PERCENT AUTO 0.3 % (0.0-6.0); IMMATURE GRAN ABSOLUTE AUTO 0.01 K/uL (0.00-0.05); IMMATURE GRAN PERCENT AUTO 0.3 % (0.0-0.4); LYMPHOCYTES ABSOLUTE AUTO 0.46 K/uL (1.00-4.80); LYMPHOCYTES PERCENT AUTO 12.7 % (24.0-44.0); MEAN PLATELET VOLUME 8.8 fL (9.4-12.4); MONOCYTES ABSOLUTE AUTO 0.46 K/uL (0.00-0.80); MONOCYTES PERCENT AUTO 12.7 % (0.0-8.0); NEUTROPHILS ABSOLUTE AUTO 2.68 K/uL (1.80-7.70); NEUTROPHILS PERCENT AUTO 73.7 % (41.0-71.0); NRBC ABSOLUTE 0.00 K/uL (0.00-0.02); NRBC PERCENT 0.0 /100WBC (0.0-0.2); PLATELET COUNT,PLT 126 K/uL (150-400); RED BLOOD CELL COUNT 3.64 M/uL (4.52-5.90); WHITE BLOOD CELL COUNT,WBC 3.63 K/uL (3.9-11.3)
[2025-02-11 06:20] LABS: A/G RATIO 0.9 (0.9-1.6); ALANINE AMINOTRANSFERASE,ALT 25.0 IU/L (14-63); ASPARTATE AMNIOTRANSFERASE,AST 14.0 IU/L (15-37); BILIRUBIN TOTAL 1.7 mg/dL (0.2-1.0); BLOOD UREA NITROGEN,BUN 11.0 mg/dL (7.0-18.0); CARBON DIOXIDE,CO2 26.0 mmol/L (21.0-32.0); CHLORIDE,CL 98.0 mmol/L (98-107); CREATININE 0.4 mg/dL (0.8-1.3); EST CRCL DRUG DOSING (CG) 210.17 mL/min; GLUCOSE RANDOM 158.0 mg/dL (74-106); POTASSIUM,K 3.5 mmol/L (3.5-5.1); PROTEIN TOTAL,TP 5.6 g/dL (6.4-8.2); SODIUM,NA 133.0 mmol/L (136-148)
[2025-02-11 06:23] LABS: ESTIMATED GFR 123.0 mL/min (>60)
[2025-02-11 11:45] VITALS: BP 117/68; PULSE 99
== END 2025-02-11 11:44 | disposition home or self-care (01) | DRG 418 ==
LOC: MW.ED 08:35 → MW.MS 19:13
PROVIDERS: ADMIT Internal Medicine; ATTEND Internal Medicine
PROC: 3E03329 Introduction of Other Anti-infective into Peripheral Vein, Percutaneous Approach (ICD-10-PCS; 2025-02-08)
PROC: 0FT44ZZ Resection of Gallbladder, Percutaneous Endoscopic Approach (ICD-10-PCS; principal; 2025-02-10 11:30)
DX: K80.00 Calculus of gallbladder with acute cholecystitis without obstruction (principal); E87.1 Hypo-osmolality and hyponatremia; E87.20 Acidosis, unspecified; I10 Essential (primary) hypertension; G47.30 Sleep apnea, unspecified; M19.90 Unspecified osteoarthritis, unspecified site; M54.9 Dorsalgia, unspecified; G89.29 Other chronic pain; E11.9 Type 2 diabetes mellitus without complications; E66.9 Obesity, unspecified; Z96.651 Presence of right artificial knee joint; N40.0 Benign prostatic hyperplasia without lower urinary tract symptoms; E80.6 Other disorders of bilirubin metabolism; E80.4 Gilbert syndrome; Z68.27 Body mass index [BMI] 27.0-27.9, adult; Z88.5 Allergy status to narcotic agent; Z79.899 Other long term (current) drug therapy; Z87.81 Personal history of (healed) traumatic fracture; Z98.890 Other specified postprocedural states; Z98.52 Vasectomy status; Z79.84 Long term (current) use of oral hypoglycemic drugs; Z86.0100 Personal history of colon polyps, unspecified; Z79.82 Long term (current) use of aspirin
CPT/HCPCS: 36415; 71045; 71045-26; 74177; 74177-26; 74181; 74181-26; 76705; 76705-26; 80048; 80053; 81001; 82009; 82247; 82248; 82947; 83036; 83605; 83690; 83735; 84132; 85025; 87070; 87075; 87077; 87186; 87205; 87428-QW; 93005; 93010; 96361; 96365; 96375; 96376; 99285; 99285-25; A9270-GY; J0665; J1100; J1200; J1308; J1815-GY; J2272; J2405; J2543; J2704; J2795; J3010; J3475; J3480; J3490; J7030; Q9967

== ENCOUNTER 2025-06-18 09:39 | Emergency (ER) | payer OTHER, BC ==
[2025-06-18] MEDS ORDERED: Sodium Chloride 0.9% 10 ML Syringe FLUSH PRN (09:43)
[2025-06-18] MEDS ORDERED: Sodium Chloride 0.9% 2.5 ML Syringe FLUSH PRN (09:43)
[2025-06-18] MEDS: Ondansetron 4 MG/2 ML SDV IVPUSH ONE ×2 (09:51→09:52)
[2025-06-18 09:57] VITALS: BP 166/99; PULSE 99
[2025-06-18 10:00] LABS: BASOPHILS ABSOLUTE AUTO 0.03 K/uL (0.00-0.20); BASOPHILS PERCENT AUTO 0.5 % (0.0-1.0); EOSINOPHILS ABSOLUTE AUTO 0.12 K/uL (0.00-0.45); EOSINOPHILS PERCENT AUTO 2.2 % (0.0-6.0); IMMATURE GRAN ABSOLUTE AUTO 0.03 K/uL (0.00-0.05); IMMATURE GRAN PERCENT AUTO 0.5 % (0.0-0.4); LYMPHOCYTES ABSOLUTE AUTO 2.47 K/uL (1.00-4.80); LYMPHOCYTES PERCENT AUTO 44.4 % (24.0-44.0); MEAN PLATELET VOLUME 8.9 fL (9.4-12.4); MONOCYTES ABSOLUTE AUTO 0.34 K/uL (0.00-0.80); MONOCYTES PERCENT AUTO 6.1 % (0.0-8.0); NEUTROPHILS ABSOLUTE AUTO 2.57 K/uL (1.80-7.70); NEUTROPHILS PERCENT AUTO 46.3 % (41.0-71.0); NRBC ABSOLUTE 0.00 K/uL (0.00-0.02); NRBC PERCENT 0.0 /100WBC (0.0-0.2); PLATELET COUNT,PLT 137 K/uL (150-400); RED BLOOD CELL COUNT 4.39 M/uL (4.52-5.90); WHITE BLOOD CELL COUNT,WBC 5.56 K/uL (3.9-11.3)
[2025-06-18 10:13] LABS: INR 1.15 (0.86-1.11); PTT,PARTIAL THROMBOPLSTIN TIME 23.6 SEC (23.9-30.7)
[2025-06-18 10:24] LABS: A/G RATIO 1.2 (0.9-1.6); ALANINE AMINOTRANSFERASE,ALT 13.0 IU/L (14-63); ASPARTATE AMNIOTRANSFERASE,AST 19.0 IU/L (15-37); BILIRUBIN TOTAL 1.9 mg/dL (0.2-1.0); BLOOD UREA NITROGEN,BUN 12.0 mg/dL (7.0-18.0); CARBON DIOXIDE,CO2 24.3 mmol/L (21.0-32.0); CHLORIDE,CL 104.0 mmol/L (98-107); CREATINE KINASE,CK 64.0 U/L (26-308); CREATININE 0.6 mg/dL (0.8-1.3); EST CRCL DRUG DOSING (CG) 140.11 mL/min; GLUCOSE RANDOM 202.0 mg/dL (74-106); POTASSIUM,K 3.6 mmol/L (3.5-5.1); PROTEIN TOTAL,TP 6.9 g/dL (6.4-8.2); SODIUM,NA 137.0 mmol/L (136-148)
[2025-06-18 10:25] LABS: ESTIMATED GFR 109.0 mL/min (>60)
[2025-06-18] MEDS ORDERED: Naloxone 0.4 MG/ML SDV IVPUSH PRN (11:30)
[2025-06-18] MEDS: fentaNYL 50 MCG/ML SDV IVPUSH ONE (11:59)
== END 2025-06-18 12:59 ==
LOC: MW.ED 09:39
DX: S06.5XAA Traumatic subdural hemorrhage with loss of consciousness status unknown, initial encounter (principal); I10 Essential (primary) hypertension; E11.9 Type 2 diabetes mellitus without complications; Z88.5 Allergy status to narcotic agent; Z88.8 Allergy status to other drugs, medicaments and biological substances; Z79.899 Other long term (current) drug therapy; Z79.85 Long-term (current) use of injectable non-insulin antidiabetic drugs; W01.198A Fall on same level from slipping, tripping and stumbling with subsequent striking against other object, initial encounter; Y93.89 Activity, other specified
CPT/HCPCS: 36415; 70450; 71045; 72125; 80053; 82550; 83735; 85025; 85610; 85730; 93005; 96374; 96375; 99285; J2405; J3010; J7030